=== PATIENT | male | born 1990 | race Caucasian/White ===

== ENCOUNTER 2018-04-23 18:06 | Emergency (ER) | payer OTHER ==
[~2018-04-23] VITALS: Ht 160 cm; Wt 64.0 kg
[2018-04-23 18:10] VITALS: BP 129/87
--- NOTE | 2018-04-23 18:18 | NUR ---
VSS, NOT IN DISTRESS; PT GIVEN URINE SAMPLE CUP; PT AMB TO RESTROOM; TO LOBBY WHEN DONE.
[2018-04-23 19:11] LABS: BASOPHILS # (AUTO) 0.1 K/uL (0.00-0.22); BASOPHILS % (AUTO) 1.4 % (0.0-2.0); EOSINOPHILS # (AUTO) 0.1 K/uL (0-0.4); EOSINOPHILS % (AUTO) 2.2 % (0.0-4.0); HEMATOCRIT 46.4 % (36-52); HEMOGLOBIN 15.7 g/dL (12.0-18.0); LYMPHOCYTES # (AUTO) 1.4 K/uL (2.0-11.5); LYMPHOCYTES % (AUTO) 26.2 % (20.5-51.1); MEAN CORPUSCULAR HEMOGLOBIN 30 pg (27-31); MEAN CORPUSCULAR HGB CONC 34 g/dL (33-37); MEAN CORPUSCULAR VOLUME 88.5 fL (80-94); MONOCYTES # (AUTO) 0.4 K/uL (0.8-1.0); MONOCYTES % (AUTO) 7.3 % (1.7-9.3); NEUTROPHILS # (AUTO) 3.5 K/uL (1.8-7.7); NEUTROPHILS % (AUTO) 62.9 % (42.2-75.2); PLATELET COUNT (AUTO) 224 K/uL (140-450); RED BLOOD CELL COUNT(AUTO) 5.25 MIL/uL (4.20-6.10); RED CELL DISTRIBUTION WIDTH 12.6 % (11.6-13.7); WHITE BLOOD COUNT (AUTO) 5.5 K/uL (4.8-10.8)
[2018-04-23 19:25] LABS: ANION GAP 11.4 (8-16); CARBON DIOXIDE 30.5 mmol/L (21-32); POTASSIUM 3.9 mmol/L (3.5-5.1)
[2018-04-23 19:35] LABS: ALBUMIN 4.4 g/dL (3.4-5.0); TOTAL BILIRUBIN 0.7 mg/dL (0.0-1.0)
--- NOTE | 2018-04-23 20:26 | NUR ---
Patient ambulated to bed 11. RN evaluating patient at bedside.
--- NOTE | 2018-04-23 20:44 | NUR ---
PT TO ED W C/O ABDOMINAL PAIN X 1 MONTH, DENIES N/V/D. PT REPORTS GENERALIZED PAIN IN BILATERAL LOWER QUADRANTS. ABD IS SOFT, NON TENDER. BOWEL SOUNDS PRESENT TO ALL QUADRANTS. PT PLACED INTO BED, PENDING MD CASTRO. PMH--DENIES RX--DENIES
--- NOTE | 2018-04-23 21:26 | NUR ---
Patient discharged with v/s stable. Written and verbal after care instructions given and explained. Patient verbalized understanding. Ambulatory with steady gait. All questions addressed prior to discharge. Advised to follow up with PMD.
[2018-04-23 21:29] VITALS: BP 119/76
== END 2018-04-23 21:26 | disposition home or self-care (01) ==
LOC: MED 18:06
DX: K58.9 Irritable bowel syndrome, unspecified (principal)
CPT/HCPCS: 36415; 80053; 81002; 83690; 85025; 99284